=== PATIENT | female | born 1975 | race African-American/Black ===

== ENCOUNTER 2019-02-06 08:03 | Emergency (ER) | payer MEDICAID ==
[~2019-02-06] VITALS: Ht 167.6 cm; Wt 51.8 kg
[~2019-02-06 08:03] MED LIST: IBUPROFEN600 MG PO; PERCOCET 5-3251 TAB PO; PRENAVITE1 TAB PO
[2019-02-06 08:22] VITALS: Ht 167.6 cm; Wt 51.8 kg
[2019-02-06] MEDS ORDERED: MUPIROCIN22 GM TOPICAL (08:24)
[2019-02-06] MEDS ORDERED: BACTRIM 400-801 TAB PO (08:24)
[2019-02-06] MEDS ORDERED: IBUPROFEN800 MG PO (08:50)
[2019-02-06] MEDS ORDERED: CLEOCIN HCL300 MG PO (08:50)
[2019-02-06] MEDS ORDERED: ACETAMINOPHEN500 M1 PO (08:50)
[2019-02-06] MEDS ORDERED: CYCLOBENZAPRINE10 MG PO (08:50)
[2019-02-06] MEDS ORDERED: KEFLEX500 MG PO (08:50)
[2019-02-06 09:00] VITALS: BP 125/65
== END 2019-02-06 09:01 | disposition home or self-care (01) ==
LOC: D.ER 08:03
DX: L73.2 Hidradenitis suppurativa (principal)

== ENCOUNTER 2019-04-15 08:23 | Emergency (ER) | payer MEDICAID ==
[~2019-04-15] VITALS: Ht 167.6 cm; Wt 52.3 kg
[~2019-04-15 08:23] MED LIST changes: +ACETAMINOPHEN500 M1 PO; +BACTRIM 400-801 TAB PO; +CLEOCIN HCL300 MG PO; +CYCLOBENZAPRINE10 MG PO; +IBUPROFEN800 MG PO; +KEFLEX500 MG PO; +MUPIROCIN22 GM TOPICAL
[2019-04-15 08:32] VITALS: Ht 167.6 cm; Wt 52.3 kg
[2019-04-15] MEDS ORDERED: ALBUTEROL SULF8.5 GM INH ×2 (08:33→09:21)
[2019-04-15 09:31] VITALS: BP 134/81
== END 2019-04-15 09:35 | disposition home or self-care (01) ==
LOC: D.ER 08:23
DX: J45.901 Unspecified asthma with (acute) exacerbation (principal); Z72.0 Tobacco use